=== PATIENT | female | born 1955 | race Caucasian/White ===

== ENCOUNTER → 2016-06-10 | Outpatient (CLI) | payer BC | END | disposition home or self-care (01) | LOC: C.PAPS 14:49 | PROVIDERS: ATTEND Obstetrics & Gynecology | DX: Z01.419 Encounter for gynecological examination (general) (routine) without abnormal findings (principal) ==

== ENCOUNTER → 2017-02-20 | Outpatient (CLI) | payer BC ==
--- NOTE | 2017-02-20 14:34 | MAMMOGRAPHY REPORT ---
BILATERAL DIGITAL SCREENING MAMMOGRAM WITH CAD: 02/20/2017 CLINICAL HISTORY: Routine screening. TECHNIQUE: Current study was also evaluated with a Computer Aided Detection (CAD) system. Bilateral CC and MLO views were obtained. COMPARISON: Comparison is made to exams dated: 02/20/2016 mammogram, 02/14/2015 mammogram, 01/17/2015 mammogram, 02/11/2014 mammogram, 02/09/2013 mammogram, and 01/30/2012 mammogram - [facility]. BREAST COMPOSITION: The tissue of both breasts is heterogeneously dense, which may obscure small mas ses. FINDINGS: No suspicious masses, calcifications, or areas of architectural distortion are noted in ei ther breast. There has been no significant interval change compared to prior exams. IMPRESSION: ACR BI-RADS CATEGORY 1: NEGATIVE There is no mammographic evidence of malignancy. A 1 year screening mammogram is recommended. The pa tient will receive written notification of the results. Approximately 10% of breast cancers are not detected with mammography. A negative mammographic report should not delay biopsy if a clinically suggestive mass is present. Jessica Croft M.D. /:02/20/2017 07:39:14 [employer] [place] [employer]: Jose ADAIR(R)(M), [facility] letter sent: Normal 1/2 BI-RADS Code: ACR BI-RADS Category 1: Negative
== END | disposition home or self-care (01) ==
LOC: C.MAMM 07:20
PROVIDERS: ATTEND Obstetrics & Gynecology
DX: Z12.31 Encounter for screening mammogram for malignant neoplasm of breast (principal)

== ENCOUNTER → 2017-07-23 | Outpatient (CLI) | payer OTHER ==
--- NOTE | 2017-07-23 10:52 | DIAGNOSTIC IMAGING REPORT ---
SOFT TISS HEAD/NECK-THYROID CLINICAL HISTORY: 61 years-old Female presenting with ABNORMAL FINDINGS. TECHNIQUE: Real-time grayscale and color Doppler ultrasound imaging of the thyroid and base of the neck was performed. COMPARISON: 10/04/2015. FINDINGS: Right lobe: Heterogeneous echotexture and echogenicity. The right lobe of the thyroid measures 4.5 x 1.1 x 1.1 cm. No parenchymal hyperemia. No nodules. Left lobe: Heterogeneous echotexture and echogenicity. The left lobe of the thyroid measures 5.0 x 1.1 x 1.3 cm. No parenchymal hyperemia. No nodules. Isthmus: The isthmus measures 2 mm in thickness. No parenchymal hyperemia. No nodules. IMPRESSION: Heterogeneous thyroid gland likely implies underlying chronic thyroid disease such as Niyah's thyroiditis or Graves' disease among other etiologies. No discrete nodule. Electronically signed by: Aj Leigh M.D. 07/23/2017 10:51 AM Dictated Date/Time: 07/23/2017 10:50 AM
== END | disposition home or self-care (01) ==
LOC: C.ULTR 10:06
PROVIDERS: ATTEND Family Medicine
DX: R93.8 Abnormal findings on diagnostic imaging of other specified body structures (principal)

== ENCOUNTER → 2017-08-15 | Outpatient (CLI) | payer OTHER ==
[~2017-08-15] MED LIST: GADAVIST IV PRN
--- NOTE | 2017-08-15 16:30 | DIAGNOSTIC IMAGING REPORT ---
Brain MRI WITH AND WITHOUT CONTRAST HISTORY: Follow-up PINEAL GLAND CYST TECHNIQUE: Multiplanar multisequence MRI of the brain was performed both before and after the intravenous administration of contrast. COMPARISON STUDY: Brain MRI 06/27/2014. FINDINGS: The paranasal sinuses and mastoid air cells are clear. 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 The orbits are unremarkable. 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 Otherwise, the midline structures are intact. The ventricles and sulci are within normal limits. There is no mass, hematoma, midline shift, or acute infarct. The major vascular flow voids at the skull base are well maintained. No abnormal enhancement. IMPRESSION: No acute abnormality identified within the brain. Stable 7 mm pineal gland cyst. Electronically signed by: Oren Parrish M.D. 08/15/2017 4:29 PM Dictated Date/Time: 08/15/2017 4:21 PM
== END | disposition home or self-care (01) ==
LOC: C.MRI 15:30
PROVIDERS: ATTEND Psychiatry & Neurology Neurology
DX: E34.8 Other specified endocrine disorders (principal)

== ENCOUNTER → 2017-08-26 | Outpatient (CLI) | payer OTHER | END | disposition home or self-care (01) | LOC: C.PAPS 13:26 | PROVIDERS: ATTEND Obstetrics & Gynecology | DX: Z12.4 Encounter for screening for malignant neoplasm of cervix (principal) ==